=== PATIENT | male | born 1950 | race Caucasian/White ===

== ENCOUNTER 2016-04-22 03:15 | Inpatient (IN) ==
[2016-04-22] MEDS ORDERED: ONDANSETRON 4 MG/2 ML VIAL ONE (03:20)
[2016-04-22] MEDS ORDERED: TICAGRELOR 90 MG TABLET ONE ×2 (03:21→04:30)
[2016-04-22] MEDS ORDERED: MORPHINE 2 MG/1 ML SYRINGE ONE ×2 (03:21→03:25)
[2016-04-22] MEDS ORDERED: NITROGLYCERIN SL 0.4 MG TABLET SL ONE (03:23)
[2016-04-22] MEDS ORDERED: HEPARIN 5,000 UNIT/1 ML VIAL ONE (03:25)
[2016-04-22] MEDS ORDERED: TICAGRELOR 90 MG TABLET PO STA (03:26)
[2016-04-22] MEDS ORDERED: METOPROLOL TARTRATE 5 MG/5 ML VIAL IV ONE (03:27)
[2016-04-22] MEDS ORDERED: METOPROLOL TARTRATE 5 MG/5 ML VIAL IV STA ×2 (03:28→03:29)
[2016-04-22] MEDS ORDERED: HEPARIN 1,000 UNIT/1 ML VIAL IV STA (03:28)
[2016-04-22] MEDS ORDERED: ONDANSETRON 4 MG/2 ML VIAL IV STA (03:28)
[2016-04-22] MEDS ORDERED: ASPIRIN 325 MG TABLET PO STA (03:28)
[2016-04-22] MEDS ORDERED: MORPHINE 2 MG/1 ML SYRINGE IV STA ×2 (03:28)
[2016-04-22] MEDS ORDERED: NITROGLYCERIN SL 0.4 MG TABLET SL PRN (03:28)
[2016-04-22] MEDS ORDERED: NITROGLYCERIN DRIP 50 MG/250 ML BOTTLE IV ONE (03:29)
[2016-04-22 03:34] LABS: Basophils # 0.1 10*3/uL (0.0-0.2); Basophils % 0.8 % (0.0-0.8); Eosinophils # 0.2 10*3/uL (0.0-0.87); Eosinophils % 1.9 % (0.00-10.9); Hematocrit 46.7 VOL% (42.0-52.0); Immature Granulocytes % 0.4 %; Immature Granulocytes Absolute 0.03 #; Lymphocytes % 25.7 % (21.2-54.2); Mean Corpuscular HGB Conc 34.3 GM/DL (32-36); Mean Corpuscular Hemoglobin 30 PG (27-34); Mean Platelet Volume 9.4 FL (9.6-12.0); Monocytes # 0.4 10*3/uL (0.11-0.8); Monocytes % 4.6 % (1.7-12.7); Neutrophils # 5.3 10*3/uL (1.4-7.4); Neutrophils % 66.6 % (38.7-73.9); Platelet Count 259 T/CUMM (130-400); Red Blood Count 5.43 MC/CUMM (3.8-5.5); Red Cell Distribution Width 12.4 % (9.3-17.3); White Blood Count 7.9 T/CUMM (4-12)
[2016-04-22] MEDS ORDERED: LIDOCAINE 1% 20 ML VIAL ONE (03:38)
[2016-04-22] MEDS ORDERED: MIDAZOLAM 2 MG/2 ML VIAL ONE (03:38)
[2016-04-22] MEDS ORDERED: fentaNYL 100 MCG/2 ML VIAL ONE (03:38)
[2016-04-22 03:42] LABS: Partial Thromboplastin Time 24.3 SECS (0-40)
[2016-04-22 03:47] LABS: Calcium 9.1 MG/DL (8.5-10.1); Osmolality,Calculated 290.8 MOS/KG (273-304); Potassium 4.2 MMOL/L (3.5-5.1)
[2016-04-22] MEDS ORDERED: ENOXAPARIN 30 MG/0.3 ML SYRINGE ONE (03:57)
[2016-04-22] MEDS ORDERED: TIROFIBAN 5,000 MCG/100 ML PREMIX IV ONE (03:58)
[2016-04-22] MEDS ORDERED: TIROFIBAN 5,000 MCG/100 ML PREMIX IV SCH (04:05)
--- NOTE | 2016-04-22 04:08 | Emergency Department Note ---
IBaldo Emily, am scribing for, and in the presence of, Yasir Harris MD 03: 42. ISteven Kevin Lee, MD, personally performed the services described in this documentation, ascribed by Katya Bland in my presence, and it is both accurate and complete . Arrival - Arrival Chief Complaint: Chest Pain Stated Complaint: chest pain Limitations: No Limitations Source: Patient - History of Present Illness HPI Narrative: Pt is a 65 y/o male who was brought to ED by EMS for further evaluation of chest pain that started when waking up at 2am. Pt has associated sxs of bilateral arm "tightness", SOB and diaphoresis. Pt was given 3 nitros en route to ED, but reports still in pain in ED and diaphoretic. Pt's BP is 196/96. Onset (ago): hour(s) Consistency: constant Severity: moderate Severity scale (1-10): 5 Quality: aching (tightness) Allergies/Adverse Reactions: Allergies Allergy/AdvReac Type Severity Reaction Status Date / Time No Known Allergies Allergy Unverified 04/22/16 03:24 Home Medications: Home Medications Medication Instructions Recorded Confirmed Type No Known Home Medications [No 04/22/16 04/22/16 History Known Home Medications] Review of System - Review of System 12 point system: reviewed and no additional remarkable complaints except as stated - Review of System Constitutional: Present: diaphoresis. Absent: chills, fever Respiratory: Present: respiratory distress (with pain) Cardiovascular: Present: chest pain Gastrointestinal: Absent: abdominal pain, nausea, vomiting Musculoskeletal: Present: arm pain (bilateral tightness). Absent: back pain, leg pain, neck pain Skin: Absent: rash Neurological: Absent: headache Exam Vital Signs: Vital Signs Temperature 97 F L 04/22/16 03:16 Pulse Rate 177 H 04/22/16 03:16 Respiratory Rate 20 04/22/16 03:16 Blood Pressure 196/99 04/22/16 03:16 O2 Sat by Pulse Oximetry 100 04/22/16 03:16 - General General appearance: alert, in distress - Head Head exam: Present: atraumatic, normocephalic - Eye Eye exam: Present: PERRL, EOMI - ENT ENT exam: Present: mucous membranes moist. Absent: mucous membranes dry - Neck Neck exam: Present: full ROM. Absent: tenderness - Chest Chest inspection: Present: symmetric chest wall rise. Absent: tenderness - Respiratory Respiratory exam: Present: normal lung sounds bilaterally. Absent: respiratory distress - Cardiovascular Cardiovascular exam: Present: regular rate, normal rhythm, normal heart sounds - Abdominal Exam Abdominal exam: Present: soft. Absent: tenderness - Back Exam Back exam: Present: full ROM. Absent: tenderness - Neurological Exam Neurological exam: Present: alert, oriented X3, CN II-XII intact. 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
[2016-04-22] MEDS ORDERED: cloNIDine 0.1 MG TABLET ONE (04:34)
[2016-04-22] MEDS ORDERED: ZALEPLON 5 MG CAPSULE PO PRN (04:38)
[2016-04-22] MEDS ORDERED: ONDANSETRON 4 MG/2 ML VIAL IV PRN (04:38)
[2016-04-22] MEDS ORDERED: HYDROmorphone 2 MG/1 ML VIAL IV PRN (04:38)
[2016-04-22] MEDS ORDERED: ACETAMINOPHEN 325 MG TABLET PO PRN (04:38)
[2016-04-22] MEDS ORDERED: ALUMINUM/MAGNES/SIMETH MAX STR 30 ML UDCUP PO PRN (04:44)
[2016-04-22] MEDS ORDERED: cloNIDine 0.1 MG TABLET PO PRN (04:47)
--- NOTE | 2016-04-22 04:50 | Operative Note ---
Date of procedure: 04/22/16 Procedure Preformed: Left heart catheterization, PCI with stent of mid RCA, PCI with stent of proximal circumflex artery. See full report for details. Surgeon / Physician: Jacky Godoy Post-op diagnosis: same Findings: Total occlusion of mid RCA, 80% stenosis of proximal circumflex artery. See full report for details. Specimens: none sent Estimated blood loss: minimal Condition: stable Anesthesia: local, conscious sedation Disposition: ICU
[2016-04-22] MEDS ORDERED: SODIUM CHLORIDE 0.9% 1,000 ML IV SCH (05:00)
--- NOTE | 2016-04-22 05:19 | Cardiac Catheterization ---
Date of Procedure:: 04/22/16 Pre-op Diagnosis: ST segment elevation myocardial infarction Post-op diagnosis: same Procedure: LEFT HEART CATHERIZATION History: 65-year-old man who was awakened early this morning with severe chest pain. No specific shortness of breath nausea and diaphoresis. EMS picked the patient up and was having met ST segment elevation myocardial infarction involving the inferior leads and possible posterior extension. Pre-Op diagnosis: ST segment elevation myocardial infarction Postoperative diagnosis: ST segment elevation myocardial infarction with total occlusion of the mid RCA, high-grade lesion in the proximal circumflex artery. Procedures: 1. Left heart catheterization. 2. Left ventricular angiogram. 3. Selective left and right coronary angiograms. 4. Percutaneous coronary intervention with stent in mid RCA, and proximal circumflex artery. 5. Right common femoral artery Angio-Seal hemostasis. Equipment: 6 Liberian arterial sheath, 6 Liberian diagnostic pigtail catheter, JL4 and JR4 diagnostic catheters. A 6 [place]ian Angio-Seal hemostatic device. For percutaneous coronary intervention of RCA: FR4 PCI guide catheter, per water flex PCI guidewire, 3.0 x 20 mm apex balloon, 3.5 x 32 mm Synergy RADHA. For percutaneous coronary intervention of circumflex artery: EBU 4 PCI guide catheter, pro-water flex PCI guidewire, 2.0 x 20 mm apex balloon, 3.0 x 8 mm Synergy RADHA. Medications: Preoperative Benadryl and Valium given by mouth. Lidocaine 1% local anesthesia 10 mls administered by myself. Intraprocedure patient received Versed 1 milligrams IVP, fentanyl 50 micrograms IVP, Dilaudid milligrams IVP. For PCI: Lovenox 25 mgms; Aggrastat bolus 42 mL; Aggrastat infusion 15.1 ml/hr, Brilinta 180 mgms; nitroglycerin infusion; clonidine 0.1 mg by mouth. Complications: None immediate. Contrast: Omnipaque 185 milliliters. Description of procedure: After informed consent the patient was given preoperative medications and brought to the catheterization laboratory where their right groin was prepped and draped in usual fashion. IV sedation was then obtained after which local anesthesia was administered at the right groin over the right common femoral artery. Using modified Seldinger technique the right common femoral artery was cannulated with 6 Liberian arterial sheath placed. The JL4 diagnostic coronary catheter was then advanced through the sheath in a retrograde approach and used to cannulate the left coronary artery of which angiograms were obtained in multiple projections. This catheter was then removed. The JR 4 diagnostic coronary catheter was then advanced retrograde through the aorta and used to cannulate the right coronary artery of which angiograms were obtained in multiple projections. This right coronary catheter was used to obtain selective left internal mammary artery angiogram. Angiograms were then reviewed. The right coronary catheter was removed. Angiograms were then reviewed. The FR4 PCI guide cath was then advanced used to cannulate the RCA through is to pro-water flex guidewire was advanced across the mid lesion into the distal RCA. Just with the guidewire flow was reestablished. 33.0 x 20 mm Rx apex balloon was then advanced across the distal portion of the mid lesion and 12 jaydon inflation was carried out. The balloon was pulled back some and a second inflation at 6 jaydon was carried out at 12 seconds. Angiograms revealed reestablishment of flow at least THAD 2 to THAD 3. At this point was still has significant residual stenosis. We exchanged for a 3.5 x 32 mm Synergy RADHA and this stent was advanced across the mid RCA stenosis and deployed at 12 jaydon for 27 seconds. Final angiograms revealed 0% residual stenosis and THAD-3 flow. At this point FR4 guide catheter and of intervention equipment was removed through the sheath. The EBU 4 PCI guide catheter was advanced and cannulated the left main coronary artery. Through this the pro-water flex PCI guidewire was advanced into the circumflex artery crossing the proximal circumflex artery lesion. The wire was placed into the first obtuse marginal branch. The 3.0 x 20 mm Rx apex balloon was then advanced across the circumflex artery lesion with a 4 jaydon inflation for 7 seconds. We exchanged for a 3.0 x 8 mm Synergy RADHA stent that was deployed at 10 jaydon for 28 seconds. Angiograms revealed 0% residual stenosis and THAD-3 flow. After final angiograms interventional catheters etc. were all removed. The pigtail catheter was then advanced through the sheath in a retrograde approach through the aorta to the aortic valve. The catheter was advanced through the aortic valve where left ventricular pressures were measured. The catheter was then pulled back into the aortic root and pressures measured. The catheter was then advanced across the aortic valve into the left ventricle where left ventricular angiogram was obtained in the right anterior oblique view. The pigtail catheter was then removed. Right common for artery Angio-Seal hemostasis was then obtained without complication. Hemodynamic data: LV 189/22, EDP 27; AO root 192/105 , mean 143 . Left ventricular angiogram: LV gram was taken to into the procedure. The anterior wall and apex in the STONE view darryl normally. The inferior wall was severely hypo-to akinetic. Overall ejection fraction was 50 to 55%. There was no mitral regurgitation noted. There are valve appeared be a tricuspid structure. The ascending aorta, and thoracic and abdominal aorta appeared be unremarkable in the STONE view. The sheath was noted to be in the right common femoral artery on runoff and was patent. Left main coronary artery angiogram: Left main coronary was a medium caliber long vessel bifurcating the LAD and circumflex arteries. It had luminal irregularities but no stenosis. Left anterior descending artery angiogram: The LAD proximally was admitted caliber vessel that extended to the posterior apical region. Diagonal branches range from small to medium caliber. Mid vessel there is a 50-60% stenosis as well as a 50-60 % stenosis in the more distal LAD. There is diffuse luminal irregularities throughout the LAD. Circumflex artery angiogram: Circumflex artery is a medium caliber vessel giving rise to a medium caliber long first obtuse marginal branch. Obtuse marginal branches beyond this are small caliber. There is a 80% proximal stenosis prior to takeoff of the first obtuse marginal branch with THAD 3 flow. There is otherwise luminal irregularities throughout the circumflex artery. Right coronary artery angiogram: RCA is a medium to large size vessel that is dominant. It was initially totally occluded in its midportion with THAD 0 flow. Post intervention the total occlusion with 0% residual and THAD-3 flow. The PDA was a medium caliber vessel with 50% proximal mid stenosis. Distal posterior lateral branches were small medium caliber vessels. AV node artery was a small caliber vessel. PCI of mid RCA : The RCA had a total/100% mid occlusion with THAD 0 flow. Post intervention as described above there was 0% residual stenosis and THAD-3 flow. PCI of Proximal Circumflex Artery: There was an 80% proximal stenosis with THAD- 3 flow. Post intervention there is 0% residual stenosis and stay with THAD-3 flow. Right common femoral artery angiogram: This vessel was seen by way of LV gram runoff. Successful Angio-Seal hemostasis. Impression: 1. Left ventricle normal size with ejection fraction of 50-55%. There is inferior basilar hypo-to akinesis. 2. LVEDP is moderately elevated at 27 mmHg. Patient's systemic blood pressure though was markedly elevated the time of procedure. 3. There was no mitral regurgitation demonstrated. 4. Aortic valve. Tricuspid structure and was without gradient. 5. RCA with had total occlusion with THAD 0 flow at mid vessel. Post intervention PDA with 50% mid stenosis. 6. Successful PCI with stent placement of the mid RCA as described above. Total occlusion/100% occlusion with THAD 0 flow with a residual post intervention of 0% stenosis and THAD-3 flow. 7. Left main coronary artery with luminal irregularities. 8. LAD with luminal irregularities and mid 50-60% stenosis and distal 50- 60% stenosis. 9. Circumflex artery with proximal 80% stenosis. Otherwise diffuse irregularities. 10. Successful PCI with stent placement in the proximal circumflex artery with 80% lesion and THAD-3 flow dilated to 0% residual stenosis and stay with THAD-3 flow. 11. Successful Angio-Seal hemostasis the right common femoral artery. Discussion: Patient with acute ST segment elevation myocardial infarction. High -grade disease in the RCA with total occlusion with successful intervention. Intervention of the circumflex artery lesion as well as successful. There still diffuse coronary artery disease. The patient has a and management uncontrolled hypertension is moderate been treated. He'll need aggressive risk factor modification. Be monitored in the CCU. Implants: See above Surgeon / Physician: Jacky Godoy Automat Car Attendant: other (Kate BRUMFIELD) Estimated blood loss: minimal Specimens: none sent Condition: stable Disposition: ICU/CCU - Discharge Disposition: Still a Patient - Medications / Follow-up
[2016-04-22] MEDS: NITROGLYCERIN DRIP 50 MG/250 ML BOTTLE IV SCH ×2 (05:20→20:20)
--- NOTE | 2016-04-22 05:27 | Cardiology History & Physical ---
Assessment and Plan (1) ST-segment elevation myocardial infarction (STEMI) of inferior wall Status: Acute Assessment and plan: 4 acute intervention. The test dictation we have actually teary-eyed and Blair RCA and circumflex arteries. Current Visit: Yes (2) Hypertension Status: Acute Assessment and plan: This is an acute diagnosis but has a history of having elevated blood pressures previously. We will treat this aggressively. Current Visit: Yes (3) Renal insufficiency Status: Acute Assessment and plan: I suspect this is chronic and probably related to his hypertension as well as other issues. We will monitor this post catheterization and contrast. Current Visit: Yes (4) CAD (coronary atherosclerotic disease) Status: Acute Assessment and plan: Patient is now post intervention. Current Visit: Yes History of Present Illness Chief complaint: chest pain, ST segment elevation myocardial infarction History of present illness: Mr. Cifuentes is a 65 year old male who was awakened this morning with chest pain it was severe. No real radiation or shortness of breath according to him. He' s had no pain before. The pain persisted and he was seen by EMS who declared that he had a inferior myocardial infarction with possible posterior extension. ECG didn't show this. He is brought to the emergency room. In route I was called as well as a cardiac catheterization laboratory. Upon arrival to the catheterization report the patient was having minimal or no pain. He is not short of breath and nauseated or having any other symptomatology. He denied any prior history of cardiac disease or cardiac treatments or seeing a marble rubber before. He did state that he had a history of some elevation in his blood pressure. He is not seen a physician in years. He takes no home medications. He does not smoke and has not smoked in 30 years. He denies knowledge of having diabetes or dyslipidemia. His lab work here revealed his creatinine is 1.4. CBC was unremarkable. In discussion with his she states is probably had some chest pain though recently. In the catheterization laboratory reviewed with the patient and then separately his cart catheterization procedure PCI. I discussed cardiac catheterization and percutaneous coronary intervention with the patient and available family. I reviewed with them the indications for the procedure and the basis of how the procedure would be carried out. I also reviewed with them the risk of the procedure which include but not necessarily limited to access site bleeding, bruising, pain, swelling or vascular injury that may require emergency vascular surgery, blood transfusion, or thrombin injection. Also discussed the possibility of stroke, myocardial infarction, arrhythmia which may require electrocardioversion, and the possibility of dye reaction that would require medical therapy. Also discussed the possibility of coronary artery injury, ruptured, closure or perforation that may require emergency bypass surgery. We also discussed the possibility of from a major complication. They voice understanding and agree to proceed. Home Medications Medication Instructions Recorded Confirmed Type No Known Home Medications [No 04/22/16 04/22/16 History Known Home Medications] Allergies Allergy/AdvReac Type Severity Reaction Status Date / Time No Known Allergies Allergy Unverified 04/22/16 03:24 Review of systems: Constitutional: Denies anorexia, chills, fatigue, fever, frequent falls, night sweats, weight gain, weight loss Eyes: Denies visual changes or loss of vision Ears: Denies decreased hearing, vertigo Nose, mouth and throat: Denies dysphagia, epistaxis, headaches, neck pain, tongue swelling, Neck: Denies thyromegaly or masses. No stiffness. Cardiovascular: as per HPI Respiratory: Denies cough, dyspnea, hemoptysis, dyspnea on exertion, wheezing, snoring Gastrointestinal: Denies abdominal pain, constipation, dyspepsia, dysphagia, hematemesis, hematochezia, melena, nausea, vomiting Genitourinary: Denies dysuria, hematuria, nocturia Musculoskeletal: Denies arthralgias, joint swelling, muscle weakness, myalgias Neurological: denies abnormal gait, abnormal speech, confusion, convulsions, frequent falls, headaches, memory loss, syncope Psychiatric: Denies anxiety, confusion, depression Endocrine: Denies cold intolerance, fatigue, heat intolerance Hematologic/Lymphatic: Denies easy bleeding, easy bruising Dermatologic: Denies Rash, itching, shingles Medical,Surgical,& Family Hx - Medical History Cardio: History of: Hypertension (he states his blood pressures just been elevated in the past) No history of: Cardiac Dysrhythmia, CAD Psychological: No history of: Anxiety Disorders Neurology: No history of: Seizures, TIA HEENT: No history of: Ear Problem, Eye Problem Endocrine: No history of: Diabetes Mellitus (IDDM), Diabetes Mellitus (NIDDM), Dyslipidemia Rheumatology: No history of;: Rheumatoid Arthritis Respiratory: No history of: Asthma, COPD Renal: No history of: Renal Failure, Renal Problems Genitourinary: No history of: Bladder Problem Gastrointestinal: No history of: Bowel Obstruction, Gastrointestinal Bleed, Liver Problems Musculoskeletal: No history of: Musculoskeletal Problems Hematology: No history of: Anemia, Bleeding Problems - Surgical History Surgical History: noncontributory - Family History Family History: noncontributory - Social History Smoking Status: Never smoker Frequency of Alcohol Use: None Type of Drug Use: None Marital Status: Lives With:: Spouse Functional capacity: independent ambulation Cardiology Physical Exam - Constitutional Vitals: Vital Signs Temp Pulse Resp BP Pulse Ox 97 F L 68 32 H 138/85 99 04/22/16 03:16 04/22/16 03:42 04/22/16 03:42 04/22/16 03:42 04/22/16 03:42 Intake and Output 04/21/16 04/21/16 04/22/16 15:59 23:59 07:59 Other: Weight 87.77 kg Patient Weight 04/22/16 23:59 Weight 87.77 kg Exam: General appearance: normal weight, no acute distress Head exam: normal inspection, atraumatic Eye exam: Pupils are equal and reactive. EOMI. There is no trauma. Ear exam: Anatomically normal. Normal auditory acuity to conversation. Oral exam: No significant oral lesions. Neck exam: normal inspection no JVD. No carotid bruit. Trachea is in midline. Respiratory exam: clear to auscultation bilaterally posteriorly and anteriorly with good air movement. No rales, rhonchi or wheezes. Cardiovascular exam: regular rate and rhythm, no murmur or gallop or rub. No precordial lift. No bruits over the major arteries. Chest wall/torso: Anatomically normal. No tenderness, deformity Peripheral Pulses: 2+ throughout. GI/Abdominal exam: normal bowel sounds, soft and nontender, no abdominal bruits or pulsatile masses. Musculoskeletal/Extremities exam: normal inspection without edema or cyanosis. No deformities or trauma. Neurological exam: alert, oriented X3. There is no gross neurologic deficits. Psychiatric exam: normal affect, normal mood. Cognitive function is grossly intact. Skin exam: normal color, warm. No rashes or other skin lesions. Result/EKG - Labs CBC & BMP: 04/22/16 03:22 04/22/16 03:22 Lab Results: I have reviewed the past 24 hour labs Labs: Laboratory Results - last 24 hr 04/22/16 04/22/16 04/22/16 03:22 03:22 03:22 WBC 7.9 RBC 5.43 Hgb 16.0 Hct 46.7 MCV 86.0 L MCH 30 MCHC 34.3 RDW 12.4 Plt Count 259 MPV 9.4 L Neut % (Auto) 66.6 Lymph % (Auto) 25.7 Mcdowell % (Auto) 4.6 Eos % (Auto) 1.9 Baso % (Auto) 0.8 Neut # (Auto) 5.3 Lymph # (Auto) 2.0 Mcdowell # (Auto) 0.4 Eos # (Auto) 0.2 Baso # (Auto) 0.1 Immature Gran % 0.4 Nucleated RBC % 0.0 Immature Gran # 0.03 Nucleated RBCs # 0.00 INR 1.0 PT Patient/Control Mix 10.0 Circ Anticoag PTT 24.3 Sodium 144 Potassium 4.2 Chloride 109 H Carbon Dioxide 23 Anion Gap 16.2 H BUN 14 Creatinine 1.40 H GFR Calculation 14 BUN/Creatinine Ratio 10.00 Glucose 163 H Calculated Osmolality 290.8 Calcium 9.1 Troponin I 04/22/16 03:22 WBC RBC Hgb Hct MCV MCH MCHC RDW Plt Count MPV Neut % (Auto) Lymph % (Auto) Mcdowell % (Auto) Eos % (Auto) Baso % (Auto) Neut # (Auto) Lymph # (Auto) Mcdowell # (Auto) Eos # (Auto) Baso # (Auto) Immature Gran % Nucleated RBC % Immature Gran # Nucleated RBCs # INR PT Patient/Control Mix Circ Anticoag PTT Sodium Potassium Chloride Carbon Dioxide Anion Gap BUN Creatinine GFR Calculation BUN/Creatinine Ratio Glucose Calculated Osmolality Calcium Troponin I 0.871 H This should be noted his creatinine is elevated. - Impressions Impressions: ECG with acute inferior myocardial infarction and possible posterior extension. Rhythm is sinus. Quality Measures - VTE Contraindication to Pharmacological VTE Prophylaxis: High Risk of Bleeding
--- NOTE | 2016-04-22 05:59 | XRay Report ---
XR chest 1V portable Indication: Chest pain. Comparison: Chest x-ray 02/03/2010 Technique: Portable AP chest was performed. Findings: Heart size, mediastinal contour, and hilar structures demonstrate no evidence of acute pathology. Faint pulmonary nodule right suprahilar lung measures approximately a centimeter greatest dimension. Lungs are otherwise clear. Bones and soft tissues demonstrate no evidence of acute pathology. Impression: 1. Small pulmonary nodule right suprahilar lung is suggested and has minimally increased in size since comparison. CT chest is recommended for further evaluation. 04/22/2016 5:55 AM PROCEDURE INTERPRETED AT [facility] DEPARTMENT OF RADIOLOGY Final Report Signed by: Dr. Fer Isaacs
[2016-04-22 07:03] LABS: CKMB % 5.3 %
[2016-04-22 07:06] LABS: Troponin I Only 2.91 NG/ML (0.00-0.045)
--- NOTE | 2016-04-22 08:57 | EKG Report ---
Stationary ECG Study [facility] ER Test Date: 04/22/2016 3:19:06 AM Pat Name: DARON NICOLE Department: Room: 121 Gender: M Filling Mixer: : [id number] Requested by: Yasir Vigil Order Number: [id number] Reading MD: LEXUS MITCHELL Intervals [place] Rate: 63 P: 28 [place]: 221 QRS: -29 QRSD: 106 T: 75 QT: 391 QTc: 399 Interpretive Statements SINUS RHYTHM WITH PROLONGED [place] INTERVAL BORDERLINE LEFT AXIS DEVIATION MARKED ST ELEVATION, CONSIDER INFERIOR INJURY WITH ANTERIOR RECIPROCAL CHANGE ACUTE [place] Electronically Signed On 04-22-16 14:10:52 DEPUTY FIRE CHIEF by LEXUS MITCHELL [email or web address]
[2016-04-22] MEDS: LOSARTAN 25 MG TABLET PO SCH (09:24)
[2016-04-22] MEDS: CARVEDILOL 6.25 MG TABLET PO SCH ×2 (09:25→20:32)
[2016-04-22] MEDS: TICAGRELOR 90 MG TABLET PO SCH ×2 (09:26→20:32)
[2016-04-22] MEDS: ASPIRIN EC 81 MG TABLET PO SCH (09:26)
[2016-04-22] MEDS: PANTOPRAZOLE 40 MG TABLET PO SCH (09:27)
--- NOTE | 2016-04-22 09:57 | EKG Report ---
Stationary ECG Study [facility] Test Date: 04/22/2016 9:56:33 AM Pat Name: DARON NICOLE Department: Room: 121 Gender: M Range Scientist: : 1950 Requested by: Yasir Vigil Order Number: [id number] Reading MD: TERENCE PATINO Intervals [place] Rate: 55 P: 12 LA: 210 QRS: -42 QRSD: 108 T: -12 QT: 397 QTc: 386 Interpretive Statements SINUS RHYTHM WITH PROLONGED LA INTERVAL MARKED LEFT AXIS DEVIATION POOR R-WAVE PROGRESSION Electronically Signed On 04-22-16 14:44:00 CALL CENTER MANAGER by TERENCE PATINO [email or web address]
[2016-04-22 13:52] LABS: CKMB % 7.7 %
[2016-04-22 13:57] LABS: Troponin I Only 7.76 NG/ML (0.00-0.045)
--- NOTE | 2016-04-22 15:00 | Event Note ---
Patient doing well post catheterization. Right groin stable. He is had no further chest pain shortness of breath. Discussed the findings with him. Tomorrow reviewed his angiograms and the results of his intervention.
[2016-04-22] MEDS: ATORVASTATIN 40 MG TABLET PO SCH (20:31)
[2016-04-22 21:30] LABS: CKMB % 6.7 %
[2016-04-22 21:31] LABS: Troponin I Only 6.96 NG/ML (0.00-0.045)
[2016-04-23 05:23] LABS: Basophils # 0.1 10*3/uL (0.0-0.2); Basophils % 0.6 % (0.0-0.8); Eosinophils # 0.1 10*3/uL (0.0-0.87); Eosinophils % 0.5 % (0.00-10.9); Hematocrit 41.7 VOL% (42.0-52.0); Hemoglobin 14.2 GM/DL (14.0-18.0); Immature Granulocytes % 0.4 %; Immature Granulocytes Absolute 0.04 #; Lymphocytes # 1.3 10*3/uL (1.4-4.0); Lymphocytes % 12.2 % (21.2-54.2); Mean Corpuscular HGB Conc 34.1 GM/DL (32-36); Mean Corpuscular Hemoglobin 29 PG (27-34); Mean Corpuscular Volume 84.9 FL (87-102); Mean Platelet Volume 9.4 FL (9.6-12.0); Monocytes # 0.7 10*3/uL (0.11-0.8); Monocytes % 6.8 % (1.7-12.7); Neutrophils # 8.5 10*3/uL (1.4-7.4); Neutrophils % 79.5 % (38.7-73.9); Platelet Count 226 T/CUMM (130-400); Red Blood Count 4.91 MC/CUMM (3.8-5.5); Red Cell Distribution Width 12.5 % (9.3-17.3); White Blood Count 10.7 T/CUMM (4-12)
[2016-04-23 05:59] LABS: Calcium 8.5 MG/DL (8.5-10.1); Potassium 3.8 MMOL/L (3.5-5.1); Risk Ratio 2.87; VLDL CHOLESTEROL 18.4 MG/DL
[2016-04-23] MEDS: NITROGLYCERIN DRIP 50 MG/250 ML BOTTLE IV SCH ×2 (07:14)
[2016-04-23] MEDS: PANTOPRAZOLE 40 MG TABLET PO SCH (08:00)
[2016-04-23] MEDS: ASPIRIN EC 81 MG TABLET PO SCH (08:00)
[2016-04-23] MEDS: TICAGRELOR 90 MG TABLET PO SCH ×2 (08:00→21:49)
[2016-04-23] MEDS: CARVEDILOL 6.25 MG TABLET PO SCH ×2 (08:00→21:49)
[2016-04-23] MEDS: LOSARTAN 25 MG TABLET PO SCH (08:01)
--- NOTE | 2016-04-23 08:22 | Cardiology Progress Note ---
Assessment and Plan (1) ST-segment elevation myocardial infarction (STEMI) of inferior wall Status: Acute Assessment and plan: This is resolving in terms of his EKG changes. He is doing well post procedure without any anginal equivalent. He's had no residual or recurrent issues or symptoms from this. We'll transfer the patient to telemetry floor. Current Visit: Yes (2) Hypertension Status: Acute Assessment and plan: Blood pressures remained stable present medical therapy. Continue this. Current Visit: Yes (3) Renal insufficiency Status: Acute Assessment and plan: I suspect this is chronic and probably related to his hypertension as well as other issues. We will monitor this post catheterization and contrast. His renal function stable with a creatinine 1.3 today that was 1.4 yesterday. Current Visit: Yes (4) CAD (coronary atherosclerotic disease) Status: Acute Assessment and plan: Patient is now post intervention. He is doing well post intervention without chest pain. We'll need to continue risk factor modification discussed this with the patient today. Current Visit: Yes Cardiology - PN: Subj Interval history: Patient doing well since Percocet coronary intervention an acute inferior myocardial infarction. The patient is having no chest pain since his intervention. He is had no shortness of breath nausea or diaphoresis. His appetite is good. He's had no dysrhythmias is remained in normal sinus rhythm. He is had no pain in his right groin. His lab work was reviewed and his CBC and chemistries remained stable. His peak troponin was 7.76 with peak CPK of 333. Renal function remained stable. His lipids are slightly elevated with LDL of 84, cholesterol is 135 and HDL is 47. His postprocedure ECG yesterday did reveal resolving ST segment elevations inferiorly. I do not have his ECG from this morning yet. His blood pressures continued to do better. We'll get him off his IV nitroglycerin and IV fluids and move him upstairs in stable. Gen. he is done fairly well. Exam (Progress Note) - Constitutional Vitals: Period Temp Pulse Resp BP Sys/Last Pulse Ox Last 24 Hr 98.5 F-99.8 F 54-85 15-24 99-177/53-103 93-98 Exam: General appearance: normal weight, no acute distress HEENT exam: normal inspection, atraumatic Neck exam: normal inspection no JVD. No carotid bruit. Trachea is in midline Respiratory/lungs exam: clear to auscultation bilaterally good air movement. Cardiovascular exam: regular rate and rhythm, no murmur or gallop or rub. No precordial lift. Chest wall exam: nontender GI/Abdominal exam: normal bowel sounds, soft, nontender, no abdominal bruits or pulsatile masses. Extremeties/musculoskeletal: normal inspection without edema or cyanosis. His right groin is stable without hematoma or tenderness or other pain. Neurological exam: alert, oriented X3, no focal deficits Psychiatric exam: normal affect, normal mood. Cognitive function is grossly normal. Skin exam: normal color, warm Result/EKG - Labs CBC & BMP: 04/23/16 04:54 04/23/16 04:54 Lab Results: I have reviewed the past 24 hour labs Labs: Laboratory Results - last 24 hr 04/22/16 04/22/16 04/22/16 09:39 12:43 21:02 WBC RBC Hgb Hct MCV MCH MCHC RDW Plt Count MPV Neut % (Auto) Lymph % (Auto) [place] % (Auto) Eos % (Auto) Baso % (Auto) Neut # (Auto) Lymph # (Auto) [place] # (Auto) Eos # (Auto) Baso # (Auto) Immature Gran % Nucleated RBC % Immature Gran # Nucleated RBCs # Sodium Potassium Chloride Carbon Dioxide Anion Gap BUN Creatinine GFR Calculation BUN/Creatinine Ratio Glucose Calculated Osmolality Calcium Total Creatine Kinase 281 D 333 H CK-MB (CK-2) 21.7 H D 22.4 H CK and CKMB Interp 7.7 6.7 Troponin I 9.250 H D 7.760 H 6.960 H Triglycerides Cholesterol LDL Cholesterol VLDL Cholesterol HDL Cholesterol Heart Disease Risk Ratio 04/23/16 04/23/16 04:54 04:54 WBC 10.7 D RBC 4.91 Hgb 14.2 Hct 41.7 L MCV 84.9 L MCH 29 MCHC 34.1 RDW 12.5 Plt Count 226 MPV 9.4 L Neut % (Auto) 79.5 H Lymph % (Auto) 12.2 L [place] % (Auto) 6.8 Eos % (Auto) 0.5 Baso % (Auto) 0.6 Neut # (Auto) 8.5 H Lymph # (Auto) 1.3 L [place] # (Auto) 0.7 Eos # (Auto) 0.1 Baso # (Auto) 0.1 Immature Gran % 0.4 Nucleated RBC % 0.0 Immature Gran # 0.04 Nucleated RBCs # 0.00 Sodium 143 Potassium 3.8 Chloride 109 H Carbon Dioxide 23 Anion Gap 14.8 BUN 13 Creatinine 1.30 GFR Calculation 68 BUN/Creatinine Ratio 10.00 Glucose 115 H Calculated Osmolality 285.0 Calcium 8.5 Total Creatine Kinase CK-MB (CK-2) CK and CKMB Interp Troponin I Triglycerides 92 Cholesterol 135 LDL Cholesterol 84.0 VLDL Cholesterol 18.4 HDL Cholesterol 47 Heart Disease Risk Ratio 2.87 - Impressions Impressions: Patient's telemetry continued to reveal reveal sinus rhythm. His postprocedure ECG revealed resolution of his ST segment elevation. Quality Measures - VTE Contraindication to Pharmacological VTE Prophylaxis: High Risk of Bleeding Specialty Discharge - Follow Up or Referrals
--- NOTE | 2016-04-23 18:31 | ECHO Report ---
Parviz Cifuentes Exam Date: 04/23/2016 09:45 Referring Physician: Technologist: Janis Ndiaye RDCS Age: 65 Ht (in): Wt (lb): Gender: M Exam Location: [facility] Echo Indications: ST elevation (STEMI) myocardial infarction of unspecified site, Chest pain, unspecified, Essential (primary) hypertension, s/p CATH with stents BP: / HR: Rhythm: Sinus Technical Quality: Fair IMPRESSIONS 1. Left ventricle is normal size systolic function ejection fraction 55+ percent. No segmental wall motion amount is appreciated. 2. Other car chambers overall are normal size, left atrium may be borderline enlarged i.e. elongated. 3. Valve structures are grossly normal anatomically and functionally. 4. Overall this is an unremarkable study. MEASUREMENTS (Male / Female) Normal Values 2D ECHO LV Diastolic Diameter PLAX 4.7 cm 4.2 - 5.9 / 3.9 - 5.3 cm LV Systolic Diameter PLAX 2.8 cm LV Fractional Shortening PLAX 39.9 % IVS Diastolic Thickness 0.8 cm 0.6 - 1.0 / 0.6 - 0.9 cm LVPW Diastolic Thickness 0.8 cm 0.6 - 1.0 / 0.6 - 0.9 cm RV Internal Dim ED PLAX 3.4 cm Aortic Root Diameter 3.8 cm LA Systolic Diameter LX 4.1 cm 3.0 - 4.0 / 2.7 - 3.8 cm FINDINGS Left Ventricle Normal left ventricular cavity size. Normal left ventricular wall thickness. Left ventricular ejection fraction is estimated at 55 plus %. Right Ventricle The right ventricle is normal in size and function. Right Atrium The right atrium is normal in size. Left Atrium Mild atrial enlargement in apical view (elongated LA). Overall the left atrium is borderline enlarged. Mitral Valve Morphologically normal mitral valve without significant stenosis or prolapse. There is no mitral regurgitation. Aortic Valve Aortic valve sclerosis without stenosis or regurgitation. Tricuspid Valve Morphologically normal tricuspid valve without significant stenosis or regurgitation. Pulmonary artery systolic pressure is normal. Pulmonic Valve Morphologically normal pulmonic valve without significant stenosis. There is no pulmonic regurgitation. Pericardium Normal pericardium without effusion. Aorta Normal ascending aorta dimension. Jacky Godoy MD (Electronically Signed) Final Date: 23 April 2016 18:30
[2016-04-23] MEDS: ATORVASTATIN 40 MG TABLET PO SCH (21:50)
--- NOTE | 2016-04-24 08:51 | Discharge Summary ---
Hospital Course - Hospital Course Hospital Course: The patient was admitted with acute inferior myocardial infarction with possible posterior extension. The patient underwent emergent catheterization and stenting of his mid RCA. With this symptomatology totally resolved and he is had no further symptoms. He said no shortness of breath palpitations syncope or near syncope. On monitor his telemetry rhythm is been stable with sinus without dysrhythmias. His echocardiogram. I yesterday revealed that his ejection fraction was normal without any real segmental wall motion amount is a valvular function was normal. Essentially a normal echocardiogram. He is been ambulating without issues or problems. His right groin is been completely stable without any discomfort pain or otherwise. I reviewed with him our findings and review the angiograms with him. Also discussed his activity level for the next week or so. I will see him in one week. Discussed also with him risk factor modification in regard to his lipids and lifestyle. Fortunately he does not have a lot of bad habits. His blood pressures markedly improved his present medical regimen and discussed risk factor modifications for that. He voices understanding and agrees. All his questions were answered. Diagnosis - Discharge Diagnosis (1) ST-segment elevation myocardial infarction (STEMI) of inferior wall Status: Acute (2) Hypertension Status: Acute (3) Renal insufficiency Status: Acute (4) CAD (coronary atherosclerotic disease) Status: Acute Specialty Discharge - Follow Up or Referrals Discharge Plan - Discharge Data Disposition: Disch To Home/Self Care Condition at Discharge: Stable Discharge Diet: advance to your usual diet Activity: resume usual activities as tolerated Hygiene: no restrictions Weight Bearing at Discharge: full weight bearing Driving: no restrictions Contact your physician if you experience:: Bleeding, pain uncontrolled by pain medications - Discharge Medications New Aspirin EC Tab 81 mg PO DAILY tablet Nitroglycerin Sl Tab [Nitrostat] 0.4 mg SL Q5M PRN #30 tablet PRN Reason: Chest Pain Atorvastatin [Lipitor] 80 mg PO BEDTIME #30 tablet Carvedilol [Coreg] 12.5 mg PO BID #60 tablet Losartan [Cozaar] 50 mg PO DAILY #30 tablet Ticagrelor [Brilinta] 90 mg PO BID #60 tablet - Follow Up or Referral Follow Up: Jacky Godoy MD [Physician] - (Follow with me on April 29. ECG that day. 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 No carotid bruit. Trachea is in midline Respiratory/lungs exam: clear to auscultation bilaterally good air movement. Cardiovascular exam: regular rate and rhythm, no murmur or gallop or rub. No precordial lift. Chest wall exam: nontender GI/Abdominal exam: normal bowel sounds, soft, nontender, no abdominal bruits or pulsatile masses. Extremeties/musculoskeletal: normal inspection without edema or cyanosis. His right groin is stable without hematoma or tenderness or other pain. Neurological exam: alert, oriented X3, no focal deficits Psychiatric exam: normal affect, normal mood. Cognitive function is grossly normal. Skin exam: normal color, warm Discharge Results Procedures and tests throughout hospitalization: Cardiac catheterization with totally occluded right coronary artery of which she underwent her cutaneous coronary intervention with stenting of the mid RCA. He did well with this. Echocardiogram with normal left ventricle size and systolic function and normal valvular function. DS: Provider Date of admission: 04/22/16 04:38 Primary care physician: . No PCP Attending physician on admission: Fabi Diaz Discharging clinician: Fabi Diaz Expected date of discharge: 04/24/16
[2016-04-24] MEDS: ASPIRIN EC 81 MG TABLET PO SCH (10:32)
[2016-04-24] MEDS: CARVEDILOL 6.25 MG TABLET PO SCH (10:32)
[2016-04-24] MEDS: TICAGRELOR 90 MG TABLET PO SCH (10:32)
[2016-04-24] MEDS: LOSARTAN 25 MG TABLET PO SCH (10:33)
[2016-04-24] MEDS: PANTOPRAZOLE 40 MG TABLET PO SCH (10:33)
[2016-04-24 13:04] VITALS: BP 120/67
== END 2016-04-24 12:49 | disposition home or self-care (01) | DRG 247 ==
LOC: EDUNIT# → EDBD → N.ED 03:15 → N.CC 03:42 → N.TELEN 04-23 12:56
PROVIDERS: ADMIT Internal Medicine Cardiovascular Disease; ATTEND Internal Medicine Cardiovascular Disease
PROC: CLCCHCL (ICD-10-PCS; 2016-04-22 04:15)